=== PATIENT | female | born 1975 | race Two or more races ===

== ENCOUNTER 2019-02-09 14:07 | Emergency (ER) | payer SELFPAY ==
[~2019-02-09] VITALS: Ht 154.9 cm; Wt 79.4 kg
[2019-02-09] MEDS ORDERED: HYDROCODONE/APAP 5-325MG TABLET ONE (14:27)
[2019-02-09] MEDS ORDERED: NEOMY/POLYMYX B/HC OTIC SOL 10 ML BOTTLE ONE (14:27)
[2019-02-09] MEDS ORDERED: NEOMY/POLYMYX B/HC OTIC SOL 10 ML BOTTLE OT ONE (14:30)
[2019-02-09] MEDS ORDERED: HYDROCODONE/APAP 5-325MG TABLET PO ONE (14:30)
--- NOTE | 2019-02-09 14:36 | NUR ---
Patient discharged to home in stable conditon. Written and verbal after care instructions given. Patient verbalizes understanding of instructions.
== END 2019-02-09 14:37 | disposition home or self-care (01) ==
LOC: ER 14:10
DX: H60.91 Unspecified otitis externa, right ear (principal)
CPT/HCPCS: A4663; J3590